=== PATIENT | female | born 1990 | race Caucasian/White ===

== ENCOUNTER → 2022-01-18 14:45 | Outpatient (CLI) | payer OTHER, SELFPAY ==
--- NOTE | ~2022-01-18 | US_ITS ---
US breast RT limited INDICATION: Palpable right breast abnormality TECHNIQUE: Dedicated Limited right breast ultrasound COMPARISON: No prior studies for comparison. FINDINGS: At 12:00, 2 cm from the nipple in the area of palpable concern there are 2 cysts, largest m easuring 1.9 cm and the smaller measuring 9 mm. No suspicious masses to suggest malignancy. IMPRESSION: 1: Right breast cysts corresponding to the area of palpable concern, largest measuring up to 1.9 cm. No sonographic evidence for malignancy. BI-RADS CATEGORY 2 - BENIGN FINDINGS Reviewed, dictated and finalized at location A. IMPRESSION: 1: Right breast cysts corresponding to the area of palpable concern, largest me asuring up to 1.9 cm. No sonographic evidence for malignancy. BI-RADS CATEGORY 2 - BENIGN FINDINGS
== END ==
PROVIDERS: PCP Nurse Practitioner; Visit Provider Nurse Practitioner
DX: N60.01 Solitary cyst of right breast (principal)
CPT/HCPCS: 76642

== ENCOUNTER → 2022-12-05 09:00 | Outpatient (CLI) | payer OTHER, SELFPAY ==
--- NOTE | ~2022-12-05 | MMUS_ITS ---
EXAMINATION: MM diagnostic inocencia BI w kizzy, US breast BI complete HISTORY: Right breast lump TECHNIQUE: Full field and spot ML, MLO and CC 3-D tomosynthesis images of both breasts were performed and synthetic 2-D images were generated. CAD analysis was submitted and interpreted. High resolution bilateral complete breast ultrasound examination including all 4 quadrants and subareolar areas was performed. COMPARISON: 01/18/2022 Limited right breast ultrasound examination BREAST PARENCHYMAL COMPOSITION: The breasts are heterogeneously dense, which may obscure small masses . FINDINGS: MAMMOGRAPHIC FINDINGS: Possible bilateral breast masses, with limited evaluation due to the surrounding heterogeneously dens e stroma. Bilateral complete breast ultrasound examination was performed. No malignant calcification, architectural distortion, skin thickening or retraction is noted. ULTRASOUND: Right breast: 12:00 3.5 cm from nipple at area of palpable abnormality: 6.3 x 7.7 x 7.6 mm mildly irregular hypoech oic lesion without internal vascularity or posterior features. This is indeterminate. Considering the irregular margins, ultrasound-guided biopsy is recommended. 6:00 4 cm from nipple: Parallel circumscribed 1.8 x 3.8 x 3.6 mm sonolucency consistent with small cy st 10:00 5 cm from nipple: Parallel circumscribed 1.9 x 3.8 x 3 mm largely sonolucent lesion without int ernal vascularity or posterior shadowing, likely benign Left breast: 12:00 4 cm from nipple: 3.8 x 6.6 x 5.6 mm sonolucency with through transmission posterior enhancemen t consistent with simple cyst 12:00 4 cm from nipple: Septated 9 x 15 x 12 mm cyst with through transmission posterior enhancement, no internal vascularity 12:00 4 cm from nipple: 5 mm septated cyst 1:00 subareolar area: 2.8 x 4.8 mm cyst with through transmission posterior enhancement 2:00 subareolar area: 3 x 10 x 8 mm cyst 6:00 5 cm from nipple: Septated 3.2 x 8.6 x 7.5 mm cyst IMPRESSION: 1. Corresponding to the right breast palpable abnormality at 12:00 3.5 cm from the nipple there is a mildly irregular hypoechoic lesion 2. Consider ultrasound-guided biopsy of right breast 12:00 lesion 3.5 cm from nipple BI-RADS category 4, suspicious findings. Dr. Song telephoned the report and ultrasound-guided biopsy recommendation on 12/05/2022 at 1305 hours to Liset. Reviewed, dictated and finalized at location A. IMPRESSION: 1. Corresponding to the right breast palpable abnormality at 12:00 3.5 cm from the nipple there is a mildly irregular hypoechoic lesion 2. Consider ultrasound-guided biopsy of right breast 12:00 lesion 3.5 cm from n ipple BI-RADS category 4, suspicious findings. Dr. Song telephoned the report and ultrasound-guided biopsy recommendation on at 1305 hours to Liset.
== END ==
PROVIDERS: PCP Nurse Practitioner; Visit Provider Nurse Practitioner
DX: N63.10 Unspecified lump in the right breast, unspecified quadrant (principal); R92.8 Other abnormal and inconclusive findings on diagnostic imaging of breast
CPT/HCPCS: 76641; 77062; 77066; G0279

== ENCOUNTER 2023-01-01 09:10 | Outpatient (CLI) | payer OTHER, SELFPAY ==
--- NOTE | ~2023-01-01 | US_ITS ---
EXAMINATION: US_BCARIMG_US DATE: 01/01/2023 13:34 CDT INDICATION: Right breast mass. Aspiration/biopsy recommended. TECHNIQUE: Survey imaging of the right breast was performed. The cyst(s) at the 12:00 position of th e right breast, 3.5 cm from the nipple was targeted for aspiration. The procedure and its risk and b enefits were discussed with the patient. Risks included but were not limited to pain, bleeding and in fection. The patient verbalized understanding and provided written consent. A time-out was performed to document the patient's name, date of , and site of procedure. The p atient's right breast was prepped and draped in usual sterile fashion. 1% lidocaine was used for loc al anesthesia. Utilizing ultrasound guidance, a 20-gauge needle was advanced into the lesion in the right breast. Aspiration was performed. 0.5 cc of clear yellowish fluid obtained without complicatio n. The patient tolerated procedure without immediate complication. Sterile bandages were applied over t he aspiration site(s).] FINDINGS: Successful ultrasound-guided aspiration of right breast cyst located at 12:00, 3.5 cm from the nipple with complete resolution of the cyst post procedure. 0.5 cc of clear yellowish fluid obtai chester without complication. IMPRESSION: 1. Successful ultrasound-guided aspiration of complicated right breast cyst. Reviewed, dictated and finalized at location A.
== END 2023-01-01 09:11 | disposition home or self-care (01) ==
PROVIDERS: PCP Nurse Practitioner; Visit Provider Surgery
DX: N60.01 Solitary cyst of right breast (principal)
CPT/HCPCS: 19000; 76942

== ENCOUNTER 2023-06-19 11:01 | Outpatient (CLI) | payer BC, OTHER, SELFPAY ==
--- NOTE | ~2023-06-19 | US_ITS ---
EXAMINATION: US breast RT limited HISTORY: Six-month follow-up after right breast cyst aspiration TECHNIQUE: Limited right breast ultrasound is performed. COMPARISON: 12/05/2022, 01/18/2022 FINDINGS: The previously described mass at the 12:00 location of the right breast has undergone inter savage aspiration. No suspicious mass is identified. There are cysts at the 6:00 and 10:00 location of t he breast. IMPRESSION: Interval right breast cyst aspiration. BI-RADS Category 2: Benign finding(s). Reviewed, dictated and finalized at location A. [employer]
== END 2023-06-19 11:02 | disposition home or self-care (01) ==
LOC: ANHIMG 11:06
PROVIDERS: PCP Nurse Practitioner; Visit Provider Physician Assistant Surgical
DX: N63.10 Unspecified lump in the right breast, unspecified quadrant (principal); R92.8 Other abnormal and inconclusive findings on diagnostic imaging of breast
CPT/HCPCS: 76642

== ENCOUNTER 2023-09-18 15:40 | Outpatient (CLI) | payer OTHER, SELFPAY ==
--- NOTE | ~2023-09-18 | US_ITS ---
EXAMINATION: US OB <= 14 weeks fetus DATE: 09/18/2023 16:03 INDICATION: Spotting near the end of the first trimester TECHNIQUE: Real-time pelvic ultrasound utilizing transabdominal probe was performed. The marvin le radiologist was not present for the study. COMPARISON: None. FINDINGS: The uterus measures 12.3 x 6.4 x 8.5 cm. There is an intrauterine gestational sac. A yolk sac and fe lindsay pole are identified. The crown rump length measures 5.3 cm, which correlates with an estimated ge stational age of 12 weeks and 0 days. heart motion is identified measuring 151 beats per minute (bpm) by M-mode Doppler. The bilateral ovaries are not visualized. Bilateral ovaries are not visuali zed. There is no free fluid in the pelvis. IMPRESSION: 1. Single living fetus with heart rate of 151 bpm. 2. Gestational age by ultrasound of 12 weeks 0 day(s) +/- 1 week and 1 day(s) with ultrasound estima catie date of delivery (MANPREET) of 04/01/2024. Reviewed, dictated and finalized at location A. IMPRESSION: 1. Single living fetus with heart rate of 151 bpm. 2. Gestational age by ultrasound of 12 weeks 0 day(s) +/- 1 week and 1 day(s) with ultrasound estimated date of delivery (MANPREET) of 04/01/2024.
== END 2023-09-18 15:41 ==
LOC: MICIMG 15:41
PROVIDERS: PCP Obstetrics & Gynecology Gynecology; Visit Provider Obstetrics & Gynecology Gynecology
DX: O26.851 Spotting complicating pregnancy, first trimester (principal); Z3A.12 12 weeks gestation of pregnancy
CPT/HCPCS: 76801

== ENCOUNTER 2024-02-29 23:52 | Inpatient (IN) | payer OTHER, SELFPAY ==
[2024-02-29 23:34] VITALS: BP 116/61; PULSE 71
[2024-03-01] VITALS (16 sets, daily range): BP systolic 110–132; BP diastolic 62–66; PULSE 78–107; RESP 16–18; TEMP 36.7–37.3; O2SAT 99–100
[2024-03-01] MEDS: AMPICILLIN 2 GM/NS 100 ML 2 GM/100 ML BAG IVPB (00:17)
[2024-03-01] MEDS: LACTATED RINGERS 1,000 ML 125 ML IV CONT (00:17)
[2024-03-01 00:39] LABS: Basophils Absolute Auto 0.1 K/mm3 (0.0-0.1); Basophils Percent Auto 0.3 % (0.2-1.2); Eosinophils Absolute Auto 0.1 K/mm3 (0-0.3); Eosinophils Percent Auto 0.7 % (0-4.4); Hematocrit 37.2 % (37.0-47.0); Hemoglobin 12.9 g/dL (12.0-15.0); Immature Granulocyte Absolute 0.19 K/mm3 (0.00-0.031); Immature Granulocyte Percent A 1.1 % (0-0.5); Lymphocytes Absolute Auto 3.02 K/mm3 (0.9-3.2); Lymphocytes Percent Auto 17.2 % (18.3-44.2); Mean Corpuscular HGB Conc 34.7 g/dl (32-36); Mean Corpuscular Hemoglobin 31.7 pg (26-34); Mean Corpuscular Volume 91.4 fl (80-100); Mean Platelet Volume 10.8 fl (7.4-10.4); Monocytes Percent Auto 5.8 % (2.6-8.5); Neutrophils Absolute Auto 13.1 K/mm3 (1.3-6.7); Neutrophils Percent Auto 74.9 % (45.5-73.1); Platelet Count Result 369 k/mm3 (150-375); Red Blood Count 4.07 M/mm3 (4.2-5.4); Red Cell Distribution Width 12.6 % (11.5-14.5); White Blood Count 17.5 K/mm3 (4.5-10.0)
[2024-03-01 01:31] LABS: HIV 1/2 Ab P24 Ag Result Negative (Negative)
[2024-03-01] MEDS: OXYTOCIN 30 UNITS/NS 500 ML 30 UNITS/500 ML BAG 999 UNITS IV CONT (01:36)
[2024-03-01] MEDS: LIDOCAINE HCL 1% LOCAL INJ 20 ML VIAL (01:40)
[2024-03-01] MEDS: fentaNYL CITRATE INJ (*CRX) 100 MCG/2 ML VIAL 50 MCG IV PUSH ×2 (01:41→02:01)
[2024-03-01 02:23] LABS: Rapid Plasma Reagin Non-Reactive (NonReactive)
--- NOTE | 2024-03-01 02:26 | WPDOBADMIT ---
Obstetrics - Admit Note Admission Note: record reviewed. No pertinent additions to the history and/or any subsequent changes in the physical findings that are not consistent with the expected course of the were found. Additions to the history and/or subsequent changes in the physical findings follow. SROM at home on 02/29/24 at 2030 with onset of ctx shortly thereafter
--- NOTE | 2024-03-01 02:30 | PM.OBPNLAB ---
Pain Control Date/time seen: 03/01/24 0055 Pain control: tolerating well Comments: CNM at bedside. Pt breathing through contractions. Feels urge to push with contractions. Pelvic Exam Dilation (cm): 10 Effacement (%): 100 station: +2 Amniotic membrane status: Ruptured Contractions Monitor mode: External Contraction frequency: 2 (1.5-2) Contraction duration: 60 (60-80) Contraction pattern: Regular Contraction phase: Contraction Contraction intensity: Strong/Firm Status status: Category ll Comments: Reassured by moderate variability and accelerations Assessment and Plan Assessment: active labor Comments: Anticipate vaginal . Pushing started after exam.
--- NOTE | 2024-03-01 02:33 | PM.OBPRVD ---
OB - Vaginal Delivery Note Procedure Delivery date: 03/01/24 Events: Premature Rupture of Membranes and Other (PTL) Induction method: None Delivery monitor: External FHT and External Uterine Route of delivery: Episiotomy description: None Laceration Description: Perineal - 2nd Degree and Labial (left) Delivery repair: vicryl Specimen: Yes (placenta) Quantitative Blood Loss (ml): 150 Anesthesia type: None Disposition: Floor Complications: No immediate complications Narrative: Annika arrived after spontaneous rupture of membranes and contractions at home. She made very quick cervical change to complete dilation. she pushed very well with contractions and brought the head to a complete crown. With the following contraction she delivered the head after which there was good restitution. A loose nuchal cord was identified. She smoothly delivered the anterior and posterior shoulders followed by the remainder of the infant. Nuchal cord was reduced and the infant was placed on maternal abdomen and dried and stimulated by the nursery staff. Before 1 minute of life, the nursery RN asked for the cord to be clamped and cut. The cord was doubly clamped and cut. Cord blood, cord gases, and cord segment were obtained. The placenta delivered spontaneously in the Schultze presentation. The vulva and vaginal mucosa were inspected and a second-degree laceration with extension to the left labia was identified. This was repaired in usual fashion. There was excellent uterine tone and hemostasis. Following delivery counts correct. Baby Date of : 03/01/24 Time of : 01:32 Gestational Age by Date: 35 (35 weeks 3 days) gender: Female Weight (pounds): 6 Weight (ounces): 0 presentation: vertex position: Left Occiput Anterior Placenta delivery description: Spontaneous Cord Vessel Description: 3 Vessels, Nuchal Cord and Clamped/Cut score one minute: 7 score five minutes: 9
--- NOTE | 2024-03-01 02:40 | PM.OBDSVD ---
DS: Admitting Diagnosis Discharge Date 03/03/24 Admitting Diagnosis 33 y.o. at 35 weeks 3 days ROM Labor Rubella Non-Immune DS: Discharge Diagnosis Discharge Diagnosis (1) (normal spontaneous vaginal delivery): Code(s): O80 - Encounter for full-term uncomplicated delivery Status: Acute (2) labor: Qualifiers: Fetus number: single or unspecified fetus labor delivery status: with delivery in third trimester labor trimester: third trimester Qualified Code(s): O60.14X0 - labor third trimester with delivery third trimester, not applicable or unspecified Code(s): O60.00 - labor without delivery, unspecified trimester Status: Acute (3) Patient is a currently breast-feeding mother: Code(s): Z39.1 - Encounter for care and examination of lactating mother Status: Acute (4) Rubella non-immune status, delivered, current hospitalization: Code(s): O99.892 - Other specified diseases and conditions complicating childbirth; Z28.39 - Other underimmunization status Status: Acute Assessment and Plan: MMR prior to DC OB - DS: Summary Hospital Course Hospital Course: Uncomplicated OB Procedures : Ultrasound OB Procedures Intrapartum: Spontaneous Vag Delivery and GBS prophylaxis OB Procedures: : None Peripartum Data Delivery Method: Natural Vaginal Laceration Description: Perineal - 2nd Degree and Labial (left) Episiotomy description: None complications: none Status at Discharge Functional status at discharge: independent ambulation Overall status at discharge: patient is progressing back to baseline Time Spent with Patient Time attestation: Total time spent providing and/or coordinating discharge services: Exam Narrative: Alert and oriented. Mood is pleasant and cooperative. Perineum with minimal edema. Fundus firm and below umbilicus. Const: General: cooperative, healthy appearing, no acute distress and alert Orientation/consciousness: patient oriented x3 Limitations: no limitations Resp: Effort & Inspection: normal respiratory effort and able to speak in complete sentences Cardio: Rate: regular rate GI: Inspection: normal to inspection GI Palp: Yes Soft to palpation : General: Yes bladder normal to palpation External Female Exam: other (lochia WNL) Bimanual exam- vagina & uterus: bladder normal to palpation Other: Fundus firm and below U Skin: General skin exam: normal color and no rashes or lesions noted Neuro: General: patient oriented x3 and moves all extremities Cognition (Neuro): normal cognition Speech: normal speech Sensory Exam: normal sensation Extrem: General: normal to inspection and no calf tenderness Psych: Appearance: grossly normal Mental Status: mental status grossly normal Affect: normal affect Thought process: Normal thought process present DS: Data Data Completed and Pending Labs on day of discharge: Labs from last 24 hours 03/01/24 00:04 WBC 17.5 H RBC 4.07 L Hgb 12.9 Hct 37.2 MCV 91.4 MCH 31.7 MCHC 34.7 RDW 12.6 Plt Count 369 MPV 10.8 H Immature Gran % (Auto) 1.1 H Neut % (Auto) 74.9 H Lymph % (Auto) 17.2 L [place] % (Auto) 5.8 Eos % (Auto) 0.7 Baso % (Auto) 0.3 Lymph # (Auto) 3.02 [place] # (Auto) 1.0 H Eos # (Auto) 0.1 Baso # (Auto) 0.1 Abs Immat Gran (auto) 0.19 H Absolute Neuts (auto) 13.1 H Absolute Nucleated RBC 0.000 Nucleated RBC % 0.0 RPR Non-reactive HIV 1&2 Ab/P24 Ag 4thGn Negative Blood Type B Positive Antibody Screen Negative Discharge Plan Discharge Attending physician on discharge: Carito Segovia Discharging Clinician: Shefali Devi Anticipated Discharge Date/Time: 03/03/24 07:57 Patient Disposition: Home, Self-Care Activity: may shower and pelvic rest Diet: regular Wound Care Instructions: follow kennedi
[2024-03-01] MEDS: BENZOCAINE 20% AER SPR (*SP) 56 GM CAN 1 SPRAY (03:00)
[2024-03-01] MEDS: WITCH HAZEL 40 PADS 1 PAD (03:00)
[2024-03-01] MEDS: ACETAMINOPHEN 325 MG TABLET 650 MG PO (03:15)
[2024-03-01] MEDS: IBUPROFEN 600 MG TABLET PO ×2 (03:15→19:30)
--- NOTE | 2024-03-01 03:57 | LDADM ---
This patient, Annika De Jesus, was admitted to Labor/Delivery/Recovery 105 on 02/29/24 at 23:52. Plans for labor, pain management and were discussed with patient. Patient/family oriented to hospital policies and general routines including ID bracelet, bed and alarms, visiting hours, pain management, procedures, bathroom and other care routines, personal items, smoking policy, room service/diet and guest tray routines, infant security routines, and visiting hours. Patient/Family are encouraged to report perceived risks to care and to ask questions if they do not understand what they are told or what they should do. See OBIX for further documentation.
--- NOTE | 2024-03-01 04:44 | OBPPTRN ---
Patient transferred to post room #286 via wheelchair. Support person present. Oriented to unit, room, information board, rooming in, admission packet and security measures. Patient verbalizes understanding.
[2024-03-01] MEDS: DOCUSATE SODIUM 100 MG CAPSULE PO ×2 (10:34→18:00)
[2024-03-01] MEDS: MULTIVIT/MIN/PREN/FOL AC/IRON TABLET 1 TAB PO (10:34)
[2024-03-02 04:09] VITALS: BP 107/55; PULSE 74; RESP 16; TEMP 37.1; O2SAT 99
[2024-03-02] MEDS: IBUPROFEN 600 MG TABLET PO ×3 (04:15→17:41)
[2024-03-02 05:05] LABS: Hematocrit 32.6 % (37.0-47.0); Hemoglobin 10.9 g/dL (12.0-15.0)
[2024-03-02 07:35] VITALS: BP 99/77; PULSE 73; RESP 16; TEMP 36.6; O2SAT 99
--- NOTE | 2024-03-02 07:40 | P.PNOB_ITS ---
OB - PN: Subj Subjective Date/time seen: 03/02/24 07:30 Interval history: Post Day 1 from . Doing well. Urinating without difficulty. Denies passing any large clots. Denies dizziness with ambulating. Tolerating po food and fluids. Bonding with . Infant in room. , pumping, and supplementing. Patient comments: pain well controlled OB - PN: Obj Data Labs 03/02/24 04:16 Labs: Laboratory Results - last 24 hr 03/02/24 04:16 Hgb 10.9 L Hct 32.6 L OB - PN A/P Assessment and Plan (1) (normal spontaneous vaginal delivery): Code(s): O80 - Encounter for full-term uncomplicated delivery Status: Acute (2) labor: Qualifiers: labor trimester: third trimester labor delivery status: with delivery in third trimester Fetus number: single or unspecified fetus Qualified Code(s): O60.14X0 - labor third trimester with delivery third trimester, not applicable or unspecified Code(s): O60.00 - labor without delivery, unspecified trimester Status: Acute (3) Patient is a currently breast-feeding mother: Code(s): Z39.1 - Encounter for care and examination of lactating mother Status: Acute Plan day: 1 Plan: routine care Time Spent With Patient Time: Total time spent is greater than 50% in coordination of care (as documented) at patient's floor/unit and/or counseling patient: Review of Systems Review of Systems: All systems reviewed & are unremarkable except as noted in HPI and below Exam Narrative: Alert and oriented. Mood is pleasant and cooperative. Perineum with minimal ed elie. Fundus firm and below umbilicus. Const: General: cooperative, healthy appearing, no acute distress and alert Orientation/consciousness: patient oriented x3 Limitations: no limitations Resp: Effort & Inspection: normal respiratory effort and able to speak in complete sentences Cardio: Rate: regular rate GI: Inspection: normal to inspection : General: Yes bladder normal to palpation External Female Exam: other (lochia WNL) Bimanual exam- vagina & uterus: bladder normal to palpation Other: Fundus firm and below U Skin: General skin exam: normal color and no rashes or lesions noted Neuro: General: patient oriented x3 and moves all extremities Cognition (Neuro): normal cognition Extrem: General: normal to inspection and no calf tenderness Psych: Appearance: grossly normal Mental Status: mental status grossly normal Affect: normal affect Thought process: Normal thought process present
--- NOTE | 2024-03-02 10:00 | PC.NURSE ---
Consulted with patient to assess needs related to . Discussed with mother her successes, concerns and any questions she has. Baby is 35 weeks and under bili lights. We reviewed their feeding plan of attempting, pumping and bottle feeding. Mom is consistent with her pump. We also discussed that early babies may wake up and appear to begin to feed effectively, but they are usually not able to transfer adequate amounts of milk directly from the breast at first. Advised mom continue to pump/bottle feed until she is sure baby is transferring milk at the breast. We reviewed working with the infant, supporting breast, protecting her nipples with an optimal deep latch, good positioning. Encouraged understanding the benefits of skin to skin, responding to feeding cues, frequencies of feeding 8-12 times in 24 hours (approximately 2-3 hours), duration of feedings (no longer than 10 minutes), milk production, intake/output feeding sheet and signs of adequate intake. Reviewed positioning and alignment, supporting breast, off-centered (asymmetrical latch) and leading with the chin with big, open, wide gape. latched optimally to the [left] breast in [football] position. Education given to the mother of how to visualize the suckling (with good rocking jaw motion), but infant will only suck once or twice and stops. Mom latched her a few separate times independently. The infant was [able] to maintain latch without discomfort to mother, though she was not sucking. Resources used to facilitate learning were used from the mom and baby guide. Mother voiced understanding of the education shared, to call for assistance if the does not latch or if there is discomfort with . Reported to the Primary RN.
[2024-03-02] MEDS: MULTIVIT/MIN/PREN/FOL AC/IRON TABLET 1 TAB PO (10:43)
[2024-03-02] MEDS: DOCUSATE SODIUM 100 MG CAPSULE PO ×2 (10:43→17:42)
[2024-03-02 18:55] VITALS: BP 112/66; PULSE 86; RESP 16; TEMP 36.6; O2SAT 98
[2024-03-03] MEDS: IBUPROFEN 600 MG TABLET PO (04:11)
[2024-03-03 07:40] VITALS: BP 111/60; PULSE 69; RESP 18; TEMP 36.6; O2SAT 99
[2024-03-03] MEDS: MULTIVIT/MIN/PREN/FOL AC/IRON TABLET 1 TAB PO (07:47)
--- NOTE | 2024-03-03 07:54 | PM.OBPNVD ---
OB - PN: Subj Subjective Date/time seen: 03/03/24 07:54 Interval history: Post Day 2 from . Doing well. No complaints. Urinating without difficulty. Denies passing any large clots. Denies dizziness with ambulating. Tolerating po food and fluids. Bonding with . in room under bili lights. Continues , pumping, and supplementing. OB - PN: Obj Data Labs 03/02/24 04:16 OB - PN A/P Assessment and Plan (1) Rubella non-immune status, delivered, current hospitalization: Code(s): O99.892 - Other specified diseases and conditions complicating childbirth; Z28.39 - Other underimmunization status Status: Acute Assessment and Plan: plan MMR prior to DC (2) Patient is a currently breast-feeding mother: Code(s): Z39.1 - Encounter for care and examination of lactating mother Status: Acute (3) labor: Qualifiers: labor trimester: third trimester labor delivery status: with delivery in third trimester Fetus number: single or unspecified fetus Qualified Code(s): O60.14X0 - labor third trimester with delivery third trimester, not applicable or unspecified Code(s): O60.00 - labor without delivery, unspecified trimester Status: Acute (4) (normal spontaneous vaginal delivery): Code(s): O80 - Encounter for full-term uncomplicated delivery Status: Acute Plan day: 2 Plan: discharge home Time Spent With Patient Time: Total time spent is greater than 50% in coordination of care (as documented) at patient's floor/unit and/or counseling patient: Review of Systems Review of Systems: All systems reviewed & are unremarkable except as noted in HPI and below Exam Narrative: Alert and oriented. Mood is pleasant and cooperative. Perineum with minimal edema. Fundus firm and below umbilicus. Const: General: cooperative, healthy appearing, no acute distress and alert Orientation/consciousness: patient oriented x3 Limitations: no limitations Resp: Effort & Inspection: normal respiratory effort and able to speak in complete sentences Cardio: Rate: regular rate GI: Inspection: normal to inspection GI Palp: Yes Soft to palpation : General: Yes bladder normal to palpation External Female Exam: other (lochia WNL) Bimanual exam- vagina & uterus: bladder normal to palpation Other: Fundus firm and below U Skin: General skin exam: normal color and no rashes or lesions noted Neuro: General: patient oriented x3 and moves all extremities Cognition (Neuro): normal cognition Speech: normal speech Sensory Exam: normal sensation Extrem: General: normal to inspection and no calf tenderness Psych: Appearance: grossly normal Mental Status: mental status grossly normal Affect: normal affect Thought process: Normal thought process present
[2024-03-03] MEDS: MEASLES,MUMPS,RUBELLA VACCINE 0.5 ML VIAL SUB-Q (08:59)
--- NOTE | 2024-03-03 18:03 | PC.NURSE ---
Patient instructed on viewing the discharge video Mother & Baby Care, The First Two Weeks . Patient was given the opportunity and encouraged to ask questions. Patient verbalized understanding of information shared and has been given the mother/baby guide for home reference.
[2024-03-04 15:52] VITALS: BP 98/63; PULSE 76; RESP 18; TEMP 37.6; O2SAT 99
== END 2024-03-03 18:00 | disposition home or self-care (01) | DRG 807 ==
LOC: ANHOBOP 23:52 → ANHLDR 23:52 → ANHOB2 03-01 04:51
PROVIDERS: Advanced Practice Midwife; Admitting Provider Obstetrics & Gynecology Gynecology; PCP Obstetrics & Gynecology Gynecology; Visit Provider Obstetrics & Gynecology Gynecology
DX: O60.14X0 Preterm labor third trimester with preterm delivery third trimester, not applicable or unspecified (principal); Z37.0 Single live birth; Z3A.35 35 weeks gestation of pregnancy; O70.1 Second degree perineal laceration during delivery; O69.81X0 Labor and delivery complicated by cord around neck, without compression, not applicable or unspecified; Z28.39 Other underimmunization status
CPT/HCPCS: 36415; 85014; 85018; 85025; 86592; 86703; 86850; 86900; 86901; 88307; 90710; A9270; G0432; J0290; J2590; J3010; J7120